=== PATIENT | male | born 1965 | race Caucasian/White ===

== ENCOUNTER 2019-04-21 06:31 | Day surgery (SDC) | payer OTHER ==
[2019-04-18 16:53] VITALS: BMI 30.5
[2019-04-21] MEDS ORDERED: PROPOFOL 20 ML ONE ×2 (07:11)
[2019-04-21] MEDS ORDERED: LIDOCAINE HCL/PF 2% SDV 5ML VIAL ONE (07:11)
[2019-04-21 09:46] VITALS: BP 131/74; PULSE 68; TEMP 98
--- NOTE | 2019-04-25 14:20 | PATH ---
Surgical Pathology Report Patient Name: MARIA E WHITESIDE [facility]. Rec. #: [id number] /Age/Gender: 1965 (Age: 54) / M Account: [id number] Location: [facility] Taken: 04/21/2019 Received: 04/21/2019 Reported: 04/25/2019 Physicians: Stephen Kraus M.D. Specimen(s) Received A: SECOND PORTION OF DUODENUM B: GASTRIC ANTRUM Clinical History Anemia Postoperative diagnosis: Gastritis, internal hemorrhoids, diverticulosis Final Diagnosis A. SECOND PORTION OF DUODENUM, BIOPSY: DUODENAL MUCOSA WITH NO PATHOLOGIC FINDINGS. B. GASTRIC ANTRUM, BIOPSY: MILD CHRONIC GASTRITIS. IMMUNOSTAIN IS NEGATIVE FOR H. PYLORI ORGANISMS. Electronically Signed Nova Rivera M.D. Gross Description A. Received in formalin, labeled "biopsy second portion of duodenum" are 2 gallo, irregular portions of soft tissue measuring 0.3 and 0.4 cm. in greatest dimension. The specimens are submitted in toto in one cassette. B. Received in formalin, labeled "biopsy gastric antrum" are 2 gallo, irregular portions of soft tissue measuring 0.3 and 0.4 cm. in greatest dimension. The specimens are submitted in toto in one cassette. 04/21/201904/21/2019
== END 2019-04-21 10:05 | disposition home or self-care (01) ==
LOC: FASU-ENDO 06:31
PROVIDERS: ATTEND Internal Medicine Gastroenterology
PROC: 0DB98ZX Excision of Duodenum, Via Natural or Artificial Opening Endoscopic, Diagnostic (ICD-10-PCS; 2019-04-21)
PROC: 0DB68ZX Excision of Stomach, Via Natural or Artificial Opening Endoscopic, Diagnostic (ICD-10-PCS; 2019-04-21)
PROC: 0DJD8ZZ Inspection of Lower Intestinal Tract, Via Natural or Artificial Opening Endoscopic (ICD-10-PCS; principal; 2019-04-21 08:30)
DX: Z12.11 Encounter for screening for malignant neoplasm of colon (principal); K57.30 Diverticulosis of large intestine without perforation or abscess without bleeding; K64.8 Other hemorrhoids; K29.50 Unspecified chronic gastritis without bleeding
CPT/HCPCS: 88305-TC; 88342-TC

== ENCOUNTER 2021-09-09 19:49 | Observation (INO) | payer OTHER ==
[2021-09-09] MEDS ORDERED: SODIUM CHLORIDE 1,000 ML IV ONE (20:17)
[2021-09-09] MEDS ORDERED: morphine CARPU-JECT 4 MG/1 ML DISP.SYRIN IVPUSH ONE (20:17)
[2021-09-09] MEDS ORDERED: KETOROLAC TROMETHAMINE 30 MG/1 ML VIAL IVPUSH ONE (20:17)
[2021-09-09] MEDS ORDERED: PIPERACILLIN/TAZOB 3.375 GM 3.375 GM in DEXTROSE 5%-WATER - 50 ML IVPB ONE (20:19)
[2021-09-09] MEDS ORDERED: VANCOMYCIN 1 GM in D5W (PRE-DOCKED) 1,000 MG/250 ML IVPB ONE (20:19)
[2021-09-09] MEDS ORDERED: KETOROLAC TROMETHAMINE 30 MG/1 ML VIAL ONE (20:33)
[2021-09-09] MEDS ORDERED: morphine SULFATE 4 MG/ML VIAL ONE (20:33)
[2021-09-09] MEDS ORDERED: PIPERACILLIN/TAZOBACTAM 3.375 GM VIAL IVPB ONE (20:33)
[2021-09-09] MEDS ORDERED: VANCOMYCIN 1,000 MG VIAL (RESTRICTED TO ID ONLY) ONE (20:34)
[2021-09-09 21:00] LABS: ALBUMIN 3.7 g/dl (3.4-5.0); BILIRUBIN,TOTAL 1.1 mg/dl (0.2-1); CREATININE 0.7 mg/dl (0.55-1.3); TOT PROT 7.1 g/dl (6.4-8.2)
[2021-09-09 21:03] LABS: BASO % 0.9 % (0-2.0); EOS % 1.6 % (0-4.5); HEMATOCRIT 35.8 % (35.4-49); HEMOGLOBIN 12.3 GM/dL (11.7-16.9); MCH 29.5 pg (25.7-33.7); MCHC 34.2 g/dl (32.0-35.9); MEAN CELL VOLUME 86.2 fl (80-96); MEAN PLT VOLUME 8.3 fl (7.5-11.1); MONO % 12.5 % (3.8-10.2); PLATELET COUNT 194 10^3/uL (134-434); RBC 4.15 M/mm3 (4.00-5.60); RDW 15.6 % (11.9-15.9); WHITE BLOOD COUNT 6.7 K/mm3 (4.0-10.0)
[2021-09-10] MEDS ORDERED: ACETAMINOPHEN 325 MG TABLET (FP) PO PRN (04:15)
[2021-09-10] MEDS: PIPERACILLIN/TAZOB 3.375 GM 3.375 GM in DEXTROSE 5%-WATER - 50 ML IVPB SCH ×3 (04:20→17:24)
[2021-09-10] MEDS ORDERED: PIPERACILLIN/TAZOBACTAM 3.375 GM VIAL IVPB ONE ×3 (04:27→17:21)
[2021-09-10] MEDS ORDERED: DEXTROSE 5%-WATER - 50 ML IVPB ONE ×3 (04:27→17:21)
[2021-09-10 04:46] VITALS: BMI 28.3
[2021-09-10] MEDS ORDERED: VANCOMYCIN/WATER BAGS 1,250 MG/250 ML BAG IVPB SCH (10:00)
[2021-09-10] MEDS: FAMOTIDINE 20 MG TABLET PO SCH (10:06)
[2021-09-10] MEDS: ENOXAPARIN NA (PORCINE) 40 MG/0.4 ML DISP.SYRIN SQ SCH (10:06)
[2021-09-10 11:03] LABS: BASO % 0.9 % (0-2.0); EOS % 1.7 % (0-4.5); HEMATOCRIT 37.1 % (35.4-49); HEMOGLOBIN 12.6 GM/dL (11.7-16.9); MCH 29.5 pg (25.7-33.7); MEAN CELL VOLUME 86.8 fl (80-96); MEAN PLT VOLUME 8.2 fl (7.5-11.1); NEUT % 69.4 % (42.8-82.8); PLATELET COUNT 185 10^3/uL (134-434); RBC 4.27 M/mm3 (4.00-5.60); RDW 15.5 % (11.9-15.9); WHITE BLOOD COUNT 6.3 K/mm3 (4.0-10.0)
[2021-09-10 11:46] LABS: CALCIUM 8.6 mg/dL (8.5-10.1)
[2021-09-10 11:47] LABS: MAGNESIUM 2.1 mg/dL (1.8-2.4)
[2021-09-10 11:50] LABS: CREATININE 0.8 mg/dL (0.55-1.3)
[2021-09-10] MEDS: MELATONIN 5 MG TABLETS PO SCH (21:56)
[2021-09-11] MEDS ORDERED: PIPERACILLIN/TAZOBACTAM 3.375 GM VIAL IVPB ONE ×4 (01:39→17:42)
[2021-09-11] MEDS ORDERED: DEXTROSE 5%-WATER - 50 ML IVPB ONE ×4 (01:39→17:42)
[2021-09-11] MEDS ORDERED: PIPERACILLIN/TAZOB 3.375 GM 3.375 GM in DEXTROSE 5%-WATER - 50 ML IVPB SCH (02:00)
[2021-09-11] MEDS: PIPERACILLIN/TAZOB 3.375 GM 3.375 GM in DEXTROSE 5%-WATER - 50 ML IVPB SCH ×3 (02:05→17:53)
[2021-09-11] MEDS: FAMOTIDINE 20 MG TABLET PO SCH (09:48)
[2021-09-11] MEDS: ENOXAPARIN NA (PORCINE) 40 MG/0.4 ML DISP.SYRIN SQ SCH (09:48)
[2021-09-11] MEDS ORDERED: VANCOMYCIN/WATER BAGS 1,250 MG/250 ML BAG IVPB SCH (10:00)
[2021-09-11] MEDS ORDERED: VANCOMYCIN 1 GM in D5W (PRE-DOCKED) 1,000 MG/250 ML IVPB ONE (10:57)
[2021-09-11] MEDS: VANCOMYCIN/WATER FOR INJ (PEG) 1,000 MG/200 ML BAG IVPB ONE ×2 (11:47→12:57)
[2021-09-11 12:18] LABS: BASO % 0.8 % (0-2.0); EOS % 1.9 % (0-4.5); HEMATOCRIT 37.6 % (35.4-49); HEMOGLOBIN 12.4 GM/dL (11.7-16.9); MCH 28.8 pg (25.7-33.7); MCHC 32.9 g/dl (32.0-35.9); MEAN CELL VOLUME 87.6 fl (80-96); MEAN PLT VOLUME 8.6 fl (7.5-11.1); MONO % 10.6 % (3.8-10.2); NEUT % 67.7 % (42.8-82.8); PLATELET COUNT 195 10^3/uL (134-434); RDW 15.8 % (11.9-15.9)
[2021-09-11 12:50] LABS: BLOOD UREA NITROGEN 14.6 mg/dL (7-18); CALCIUM 8.6 mg/dL (8.5-10.1)
[2021-09-11 12:51] LABS: ALBUMIN 3.3 g/dl (3.4-5.0)
[2021-09-11 12:54] LABS: CREATININE 0.7 mg/dL (0.55-1.3)
[2021-09-11 12:55] LABS: BILIRUBIN,TOTAL 1.1 mg/dL (0.2-1); TOT PROT 7.1 g/dl (6.4-8.2)
[2021-09-11] MEDS: MELATONIN 5 MG TABLETS PO SCH (22:12)
[2021-09-12] MEDS ORDERED: DEXTROSE 5%-WATER - 50 ML IVPB ONE ×2 (01:31→09:40)
[2021-09-12] MEDS ORDERED: PIPERACILLIN/TAZOBACTAM 3.375 GM VIAL IVPB ONE ×2 (01:31→09:40)
[2021-09-12] MEDS: PIPERACILLIN/TAZOB 3.375 GM 3.375 GM in DEXTROSE 5%-WATER - 50 ML IVPB SCH ×2 (01:40→09:41)
[2021-09-12 07:30] LABS: BASO % 1.2 % (0-2.0); EOS % 3.6 % (0-4.5); HEMATOCRIT 36.7 % (35.4-49); HEMOGLOBIN 12.2 GM/dL (11.7-16.9); LYMPH % 29.3 % (8-40); MCHC 33.3 g/dl (32.0-35.9); MEAN CELL VOLUME 87.3 fl (80-96); MEAN PLT VOLUME 8.2 fl (7.5-11.1); MONO % 11.7 % (3.8-10.2); NEUT % 54.2 % (42.8-82.8); PLATELET COUNT 206 10^3/uL (134-434); RBC 4.21 M/mm3 (4.00-5.60); RDW 15.5 % (11.9-15.9); WHITE BLOOD COUNT 4.2 K/mm3 (4.0-10.0)
[2021-09-12 07:57] LABS: CALCIUM 8.8 mg/dL (8.5-10.1)
[2021-09-12 07:58] LABS: BLOOD UREA NITROGEN 15.2 mg/dL (7-18); TOT PROT 6.8 g/dl (6.4-8.2)
[2021-09-12 08:00] LABS: CREATININE 0.8 mg/dL (0.55-1.3)
[2021-09-12 08:01] LABS: BILIRUBIN,TOTAL 1.2 mg/dL (0.2-1)
[2021-09-12 09:05] LABS: ERYTHROCYTE SEDIMENTATION RATE 42 mm/hr (0-20)
[2021-09-12] MEDS: ENOXAPARIN NA (PORCINE) 40 MG/0.4 ML DISP.SYRIN SQ SCH (09:40)
[2021-09-12] MEDS: FAMOTIDINE 20 MG TABLET PO SCH (09:41)
[2021-09-12 15:56] VITALS: BP 139/64; PULSE 70; TEMP 98.4
== END 2021-09-12 17:03 | disposition home or self-care (01) ==
LOC: FER 19:49 → FM/S 22:57 → UNDOADMOB 23:30 → INTOOBSV 23:30 → FM/S 23:30 → J6S 09-10 04:10
PROVIDERS: ADMIT Internal Medicine
PROC: 3E03329 Introduction of Other Anti-infective into Peripheral Vein, Percutaneous Approach (ICD-10-PCS; principal; 2021-09-09)
PROC: 3E033NZ Introduction of Analgesics, Hypnotics, Sedatives into Peripheral Vein, Percutaneous Approach (ICD-10-PCS; 2021-09-09)
PROC: 3E0337Z Introduction of Electrolytic and Water Balance Substance into Peripheral Vein, Percutaneous Approach (ICD-10-PCS; 2021-09-09)
DX: L03.032 Cellulitis of left toe (principal); S91.302A Unspecified open wound, left foot, initial encounter; X58.XXXA Exposure to other specified factors, initial encounter; Y93.9 Activity, unspecified; Y92.9 Unspecified place or not applicable; U07.1 COVID-19; K21.9 Gastro-esophageal reflux disease without esophagitis
CPT/HCPCS: 36415; 71045-TC-FY; 73630-TC-LT; 73718-TC-LT; 80048; 80053; 80061; 82728; 83036; 83605; 83615; 83735; 84443; 85025; 85379; 85651; 86140; 87040; 87070; 87186; 87205; 93005; 99285-25; C9803-CS; G0378; U0003; U0005

== ENCOUNTER 2023-01-05 08:38 | Emergency (ER) | payer OTHER ==
[2023-01-05 08:49] VITALS: BP 120/70; PULSE 82; RESP 20; TEMP 98.3; BMI 28.8
[2023-01-05] MEDS ORDERED: predniSONE 20 MG TABLET (UD) PO ONE (09:02)
[2023-01-05] MEDS ORDERED: predniSONE 20 MG TABLET (UD) ONE (09:05)
== END 2023-01-05 09:50 | disposition home or self-care (01) ==
LOC: FER 08:38
DX: L25.5 Unspecified contact dermatitis due to plants, except food (principal); R21 Rash and other nonspecific skin eruption; M79.89 Other specified soft tissue disorders
CPT/HCPCS: 99283-25